=== PATIENT | female | born 1930 | race Caucasian/White ===

== ENCOUNTER 2020-06-04 14:44 | Inpatient (IN) ==
--- OUTSIDE RECORDS SUMMARY | 2020-06-04 14:47 | External Medical Summary | Continuity of Care Document ---
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 , M.D. Quantity: 90 Refills: 1 Meclizine HCl - 25 MG Oral Tablet; TAKE 1 TABLET 3 ODILON ES DAILY NEEDED. , M.D. Quantity: 100 Refills: 1 Ondansetron HCl - 4 MG Oral Tablet; TAKE 1 TABLET EVERY 4-6 HOURS NEEDED FOR NAUSEA , M.D. Refills: 0 raNITIdine HCl 75 MG TABS; TAKE 1 TABLET DAILY NEEDED. , M.D. Refills: 0 PreserVision AREDS Oral Capsule; TAKE 1 CAPSULE DAILY. , M.D . Refills: 0 Procedures History of Cholecystotomy Status: Comple braulio Immunizations Immunizations not documented Social History - Smoking Status Ex-smoker Plan of Treatment Planned Observations Planned Goals not documented Results No Known Results Results not documented
[2020-06-04] MEDS ORDERED: SODIUM CHLORIDE 0.9% 500 ML IV ONE (16:22)
--- NOTE | 2020-06-04 16:43 | XRay Report ---
XR chest 1V portable CLINICAL HISTORY: weakness COMPARISON STUDY: No previous studies for comparison. FINDINGS: The heart is normal in size. There is a moderate thoracolumbar scoliosis. There is no failu re. There is no focal pulmonary consolidation. There is minimal blunting of the lateral costophrenic angles[ IMPRESSION: 1. Scoliosis 2. Minimal blunting of the lateral costophrenic angles 3. Otherwise unremarkable AP portable chest ACT 112: Negative or not required by law. Electronically signed by: Mohsen Kaur M.D. 06/04/2020 4:41 PM
[2020-06-04 17:14] LABS: Basophils # (auto) 0.01 K/uL (0-0.2); Basophils % (auto) 0.2 %; Eosinophils # (auto) 0.06 K/uL (0-0.5); Eosinophils % (auto) 1.5 %; Hematocrit (blood only) 40.5 % (37-47); Immature Granulocytes # (auto) 0.01 K/uL (0.00-0.02); Immature Granulocytes % (auto) 0.2 %; Lymphocytes # (auto) 0.53 K/uL (1.2-3.4); Lymphocytes % (auto) 13.2 %; Mean Corpuscular Hemoglobin 30.7 pg (25-34); Mean Corpuscular Hgb Conc 32.1 g/dL (32-36); Mean Corpuscular Volume 95.7 fL (80-100); Mean Platelet Volume 9.8 fL (7.4-10.4); Monocytes # (auto) 0.51 K/uL (0.11-0.59); Monocytes % (auto) 12.7 %; Neutrophils # (auto) 2.91 K/uL (1.4-6.5); Neutrophils % (auto) 72.2 %; Platelet Count 123 K/uL (130-400); RDW Coefficient of Variation 14.1 % (11.5-14.5); RDW Standard Deviation 49.9 fL (36.4-46.3); Red Blood Count 4.23 M/uL (4.2-5.4); White Blood Count 4.03 K/uL (4.8-10.8)
--- NOTE | 2020-06-04 17:21 | Emergency Department Note ---
Impression & Plan Weakness, Hypercalcemia, Elevated troponin, Renal insufficiency ED Provider Note NAME: TOSIN SUTHERLAND AGE: 89 SEX: F ARRIVES VIA: Walk-In INFORMANT: Patient, ED PROVIDER(S): Dominic Jones MD CHIEF COMPLAINT: Weakness PLAN: Disposition: Admit MEDICAL DECISION MAKING: The patient is a pleasant 89-year-old woman who presents to the emergency department accompanied by her daughter with concern for continued generalized weakness and decreased appetite with nausea and dizziness after recent hospitalization several weeks ago [facility] for kidney stone which required stent placement subsequently discharged home but because of continued weakness from her hospitalization went to [facility] for several weeks where she requested to leave early because she wanted to go home. The patient's daughter reports that since she is been home she is not walking at her baseline and will walk with her walker from living to the kitchen but will become severely fatigued and will need assistance immediately or she will fall. She does admit that this was her state when she left the hospital as well as when she left rehab at [facility]. Prior to this they report she was admitted to [facility] for confusion and she was found to have elevated calcium. The daughter reports they wanted to come here as opposed to returning to [place] or [facility] because she felt like they were "getting the run around". She does admit that they have not contacted her PCP since she left [facility] but have an appointment in a couple of weeks. They deny fevers, cough, congestion, CP, SOB. On arrival patient is fatigued appearing but no acute distress, afebrile with stable vital signs. She has no focal neurologic deficits. She has general symmetric weakness throughout. DTRs within normal limits. There is no clonus. She appears clinically dry. EKG without overt acute ischemia. CXR negative for acute cardiopulmonary process. WBC 4K, nonspecific. H/H wnl. Platelets 123K without recent for comparison. Chemistry without acidosis. Creatinine 1.49 without prior for comparison though family feel there were told she has mild renal insufficiency in the past. BUN/Cr > 20 suggestive of pre-renal component. Magnesium 1.7 with repletion ordered but declined by patient and family. Calcium is elevated at 11.2. LFTS unremarkable. Initial Troponin 0.059 without prior for comparison however unlikely ACS at this time given EKG. Lipase wnl. Covid-19, Influenza, and RSV PCR negative. CT head and Abdomen pelvis ordered however son at the bedside was decided that they did not want this done as she had extensive brain imaging in March. I did explain that this was indicated given her symptoms of weakness (while nonfocal) have continued. However, CT head was still declined. They were agreeable with CT of the abdomen, which was performed and did not demonstrate any significant acute findings. After reviewing findings and speaking at length of her ongoing weakness they did agree with plan for admission for further evaluation and management. Case was discussed with Dr. Connors, [facility] hospitalist, who will evaluate the patient for admission. Triage Nursing notes reviewed and agree them. Prior medical records reviewed Vital Signs: reviewed and remarkable for no significant abnormalities Differential diagnosis: Infection, dehydration, metabolic abnormality, hypo/hyperglycemia, electrolyte disturbance, anemia, hypoxia, cardiac sources, intracerebral event, toxicologic, neurologic, as well as other pathologies. ER treatment provided: See below. Diagnostics interpreted by me: ECG: NSR, 75 bpm, no ectopy, no overt ST elevation or depression. QTC 399, QRS 78. Cardiac Monitoring: An order for continuous cardiac monitoring was placed and demonstrated NSR, 75 bpm, no ectopy. Laboratory studies: See below Imaging studies: XR chest 1V portable CLINICAL HISTORY: weakness COMPARISON STUDY: No previous studies for comparison. FINDINGS: The heart is normal in size. There is a moderate thoracolumbar sc oliosis. There is no failure. There is no focal pulmonary consolidation. There is minimal blunting of the lateral costophrenic angles[ IMPRESSION: 1. Scoliosis 2. Minimal blunting of the lateral costophrenic angles 3. Otherwise unremarkable AP portable chest -- CT SCAN OF THE ABDOMEN AND PELVIS WITHOUT CONTRAST CLINICAL HISTORY: back pain, generalized weakness, s/p ureteral stent COMPARISON STUDY: No previous studies for comparison. TECHNIQUE: CT scan of the abdomen and pelvis was performed from the lung bases to the proximal femurs. Images are reviewed in the axial, sagittal, and coronal planes. IV contrast was not administered for this examination. A dose lowering technique was utilized adhering to the principles of ALARA. CT DOSE: 468.42 mGy.cm FINDINGS: Lower chest: There are small bilateral pleural effusions. There are bibasilar opacity statistically atelectatic. There are coronary artery calcifications. There is 16mm right breast nodule possibly representing a cyst. Liver: The unenhanced liver is normal in size, contour, and attenuation. There is no intrahepatic biliary ductal dilatation. Gallbladder: Surgically absent Spleen: Normal in size and attenuation. Pancreas: Unremarkable. Adrenal glands: There is a 17 mm left adrenal adenoma Kidneys: There is no hydronephrosis. No renal or ureteral calculi are visualized. Bowel: There are no transition zones indicate bowel obstruction. 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 Peritoneum: There is no intraperitoneal free air or abdominal ascites. Vasculature: The abdominal aorta is normal in course and caliber. Adenopathy: None. Pelvic viscera: There are small bladder calculi. Skeletal structures: There is a pronounced lumbar scoliosis. There are multilev el degenerative changes. No destructive lesions are visualized. IMPRESSION: 1. Postsurgical changes are prior colectomy with right lower quadrant ileostomy 2. No evidence of bowel obstruction. No evidence of free air 3. No renal or ureteral calculi identified 4. Multiple tiny bladder calculi 5. Small bilateral pleural effusions with dependent parenchymal opacities likely atelectatic 6. Prominent scoliosis with degenerative change. Consultation(s): Case was discussed with Dr. Connors, [facility] hospitalist, who will evaluate the patient for admission. HPI: The patient is a pleasant 89-year-old woman who presents to the emergency department accompanied by her daughter with concern for continued generalized weakness and decreased appetite with nausea and dizziness after recent hospitalization several weeks ago [facility] for kidney stone which required stent placement subsequently discharged home but because of continued weakness from her hospitalization went to [facility] for several weeks where she requested to leave early because she wanted to go home. The patient's daughter reports that since she is been home she is not walking at her baseline and will walk with her walker from living to the kitchen but will become severely fatigued and will need assistance immediately or she will fall. She does admit that this was her state when she left the hospital as well as when she left rehab at [facility]. Prior to this they report she was admitted to [facility] for confusion and she was found to have elevated calcium. The daughter reports they wanted to come here as opposed to returning to [place] or [facility] because she felt like they were "getting the run around". She does admit that they have not contacted her PCP since she left [facility] but have an appointment in a couple of weeks. They deny fevers, cough, congestion, CP, SOB. ROS: See above HPI for pertinent positives & negatives. A total of 10 systems reviewed and were otherwise negative. PAST MEDICAL HISTORY:See Below PAST SURGICAL HISTORY:See Below FAMILY HISTORY:See Below SOCIAL HISTORY:See Below HOME MEDICATIONS:See Below ALLERGIES:See Below VITALS:See Below PHYSICAL EXAMINATION: GENERAL: Awake, alert, fatigued-appearing, in no distress HENT: Normocephalic, atraumatic. Oropharynx with dry mucous membranes and otherwise unremarkable. EYES: Normal conjunctiva. Sclera non-icteric. NECK: Supple. No nuchal rigidity. FROM. No JVD. RESPIRATORY: Clear to auscultation. CARDIAC: Regular rate, normal rhythm. Extremities warm and well perfused. Pulses equal. ABDOMEN: Soft, non-distended. No tenderness to palpation. No rebound or guarding. No masses. RECTAL: Deferred. MUSCULOSKELETAL: Chest examination reveals no tenderness. The back is symmetrical on inspection without obvious abnormality. There is no CVA tenderness to palpation. No joint edema. LOWER EXTREMITIES: Calves are equal size bilaterally and non-tender. No edema. No discoloration. NEURO: No focal sensory or motor deficits noted. Generalized weakness with 4/5 strength and SILT x 4 ext. Intact finger to nose. SKIN: No rash or jaundice noted. Dominic Jones MD Past Med/Surg History Medical History Hypercalcemia Hyperlipidemia Hypertension Nephrolithiasis Social History Smoking Status: Former smoker Hx Alcohol Use: No Hx Substance Use: No Preferred Language: Nepalese Beliefs That Will Affect Care: None Current Living Situation: Family Current Living Situation Comment: lives in house with 12 steps at entrance, son lives with patient Other Information That Helps Us Care for You: No Feels Safe at Home: Yes Safety Concerns: Feels Safe At This Time Assistive Devices: Glasses and Walker Allergies Allergies Allergy/AdvReac Type Severity Reaction Status Date / Time ketorolac [From Toradol] AdvReac Severe Confusion Verified 06/04/20 19:32 Home Meds Home Medications Medication Instructions Recorded Confirmed aspirin 81 mg PO DAILY 06/04/20 06/04/20 atenolol 12.5 mg PO QAM 06/04/20 06/04/20 atorvastatin 20 mg PO HS 06/04/20 06/04/20 lorazepam 0.5 mg PO BID PRN 06/04/20 06/04/20 tamsulosin 0.4 mg PO BID 06/04/20 06/04/20 Results & Data (ED) Vital Signs Vital Signs - 24 hr 06/04/20 14:49 06/04/20 16:07 06/04/20 16:08 Temperature 36.3 C L Temperature Source Temporal Artery Scan Pulse Rate 88 87 Pulse Rate from SpO2 Sensor 86 Pulse Rhythm Regular Pulse Strength Normal Respiratory Rate 18 23 Respiratory Effort / Characteristics Non-Labored Spontaneous Respiratory Depth Normal Respiratory Pattern Regular Blood Pressure 94/64 L 115/64 Blood Pressure Mean 74 81 Blood Pressure Position Sitting Pulse Oximetry 98 97 96 Oxygen Delivery Method Room Air Room Air Sepsis Recent Fever Within 48 Hours No Sepsis New/Unexplained Change in Mental Status N/A Sepsis Action Taken by Nursing No Action Required 06/04/20 16:09 06/04/20 16:10 06/04/20 16:20 Temperature Temperature Source Pulse Rate 86 85 77 Pulse Rate from SpO2 Sensor 86 85 85 Pulse Rhythm Pulse Strength Respiratory Rate 23 19 27 H Respiratory Effort / Characteristics Respiratory Depth Respiratory Pattern Blood Pressure Blood Pressure Mean Blood Pressure Position Pulse Oximetry 99 98 96 Oxygen Delivery Method Sepsis Recent Fever Within 48 Hours Sepsis New/Unexplained Change in Mental Status Sepsis Action Taken by Nursing 06/04/20 16:22 06/04/20 16:30 06/04/20 16:40 Temperature Temperature Source Pulse Rate 83 81 Pulse Rate from SpO2 Sensor 77 84 Pulse Rhythm Pulse Strength Respiratory Rate 23 16 Respiratory Effort / Characteristics Respiratory Depth Respiratory Pattern Blood Pressure Blood Pressure Mean Blood Pressure Position Pulse Oximetry 96 97 99 Oxygen Delivery Method Room Air Sepsis Recent Fever Within 48 Hours Sepsis New/Unexplained Change in Mental Status Sepsis Action Taken by Nursing 06/04/20 16:50 06/04/20 17:00 06/04/20 17:01 Temperature Temperature Source Pulse Rate 76 78 85 Pulse Rate from SpO2 Sensor 76 78 77 Pulse Rhythm Pulse Strength Respiratory Rate 20 24 20 Respiratory Effort / Characteristics Respiratory Depth Respiratory Pattern Blood Pressure 114/62 Blood Pressure Mean 79 Blood Pressure Position Pulse Oximetry 99 97 97 Oxygen Delivery Method Sepsis Recent Fever Within 48 Hours Sepsis New/Unexplained Change in Mental Status Sepsis Action Taken by Nursing 06/04/20 17:10 06/04/20 17:20 06/04/20 17:30 Temperature Temperature Source Pulse Rate 78 77 Pulse Rate from SpO2 Sensor Pulse Rhythm Pulse Strength Respiratory Rate 18 25 H 23 Respiratory Effort / Characteristics Respiratory Depth Respiratory Pattern Blood Pressure Blood Pressure Mean Blood Pressure Position Pulse Oximetry Oxygen Delivery Method Sepsis Recent Fever Within 48 Hours Sepsis New/Unexplained Change in Mental Status Sepsis Action Taken by Nursing 06/04/20 17:40 06/04/20 17:50 06/04/20 18:00 Temperature Temperature Source Pulse Rate 74 76 70 Pulse Rate from SpO2 Sensor Pulse Rhythm Pulse Strength Respiratory Rate 21 22 22 Respiratory Effort / Characteristics Respiratory Depth Respiratory Pattern Blood Pressure 113/61 Blood Pressure Mean 78 Blood Pressure Position Pulse Oximetry 96 Oxygen Delivery Method Room Air Sepsis Recent Fever Within 48 Hours Sepsis New/Unexplained Change in Mental Status Sepsis Action Taken by Nursing 06/04/20 18:01 06/04/20 18:10 06/04/20 18:20 Temperature Temperature Source Pulse Rate 73 72 72 Pulse Rate from SpO2 Sensor Pulse Rhythm Pulse Strength Respiratory Rate 19 19 24 Respiratory Effort / Characteristics Respiratory Depth Respiratory Pattern Blood Pressure Blood Pressure Mean Blood Pressure Position Pulse Oximetry Oxygen Delivery Method Sepsis Recent Fever Within 48 Hours Sepsis New/Unexplained Change in Mental Status Sepsis Action Taken by Nursing 06/04/20 18:30 06/04/20 18:40 06/04/20 18:50 Temperature Temperature Source Pulse Rate 74 73 72 Pulse Rate from SpO2 Sensor Pulse Rhythm Pulse Strength Respiratory Rate 23 24 22 Respiratory Effort / Characteristics Respiratory Depth Respiratory Pattern Blood Pressure Blood Pressure Mean Blood Pressure Position Pulse Oximetry Oxygen Delivery Method Sepsis Recent Fever Within 48 Hours Sepsis New/Unexplained Change in Mental Status Sepsis Action Taken by Nursing 06/04/20 19:00 06/04/20 19:10 06/04/20 19:20 Temperature Temperature Source Pulse Rate 74 75 75 Pulse Rate from SpO2 Sensor Pulse Rhythm Pulse Strength Respiratory Rate 21 23 24 Respiratory Effort / Characteristics Respiratory Depth Respiratory Pattern Blood Pressure 110/66 Blood Pressure Mean 80 Blood Pressure Position Pulse Oximetry Oxygen Delivery Method Sepsis Recent Fever Within 48 Hours Sepsis New/Unexplained Change in Mental Status Sepsis Action Taken by Nursing 06/04/20 19:30 06/04/20 19:40 06/04/20 19:50 Temperature Temperature Source Pulse Rate 75 76 79 Pulse Rate from SpO2 Sensor 78 Pulse Rhythm Pulse Strength Respiratory Rate 20 16 21 Respiratory Effort / Characteristics Respiratory Depth Respiratory Pattern Blood Pressure Blood Pressure Mean Blood Pressure Position Pulse Oximetry 96 Oxygen Delivery Method Sepsis Recent Fever Within 48 Hours Sepsis New/Unexplained Change in Mental Status Sepsis Action Taken by Nursing 06/04/20 20:00 06/04/20 20:01 06/04/20 20:23 Temperature Temperature Source Pulse Rate 75 79 82 Pulse Rate from SpO2 Sensor 75 77 82 Pulse Rhythm Pulse Strength Respiratory Rate 22 19 22 Respiratory Effort / Characteristics Respiratory Depth Respiratory Pattern Blood Pressure 111/67 128/67 Blood Pressure Mean 81 87 Blood Pressure Position Pulse Oximetry 97 96 97 Oxygen Delivery Method Sepsis Recent Fever Within 48 Hours Sepsis New/Unexplained Change in Mental Status Sepsis Action Taken by Nursing 06/04/20 20:30 06/04/20 20:40 06/04/20 20:50 Temperature Temperature Source Pulse Rate 77 76 75 Pulse Rate from SpO2 Sensor 79 76 75 Pulse Rhythm Pulse Strength Respiratory Rate 22 20 23 Respiratory Effort / Characteristics Respiratory Depth Respiratory Pattern Blood Pressure Blood Pressure Mean Blood Pressure Position Pulse Oximetry 96 97 97 Oxygen Delivery Method Sepsis Recent Fever Within 48 Hours Sepsis New/Unexplained Change in Mental Status Sepsis Action Taken by Nursing 06/04/20 21:00 06/04/20 21:01 06/04/20 21:10 Temperature Temperature Source Pulse Rate 79 78 79 Pulse Rate from SpO2 Sensor 80 78 79 Pulse Rhythm Pulse Strength Respiratory Rate 24 23 23 Respiratory Effort / Characteristics Respiratory Depth Respiratory Pattern Blood Pressure 122/67 Blood Pressure Mean 85 Blood Pressure Position Pulse Oximetry 97 97 97 Oxygen Delivery Method Sepsis Recent Fever Within 48 Hours Sepsis New/Unexplained Change in Mental Status Sepsis Action Taken by Nursing 06/04/20 21:20 06/04/20 21:30 06/04/20 21:40 Temperature Temperature Source Pulse Rate 76 75 75 Pulse Rate from SpO2 Sensor 76 76 74 Pulse Rhythm Pulse Strength Respiratory Rate 21 15 20 Respiratory Effort / Characteristics Respiratory Depth Respiratory Pattern Blood Pressure Blood Pressure Mean Blood Pressure Position Pulse Oximetry 97 97 98 Oxygen Delivery Method Sepsis Recent Fever Within 48 Hours Sepsis New/Unexplained Change in Mental Status Sepsis Action Taken by Nursing 06/04/20 21:50 06/04/20 22:00 06/04/20 22:01 Temperature Temperature Source Pulse Rate 74 77 78 Pulse Rate from SpO2 Sensor 74 76 77 Pulse Rhythm Pulse Strength Respiratory Rate 21 20 22 Respiratory Effort / Characteristics Respiratory Depth Respiratory Pattern Blood Pressure 131/73 Blood Pressure Mean 92 Blood Pressure Position Pulse Oximetry 97 97 97 Oxygen Delivery Method Sepsis Recent Fever Within 48 Hours Sepsis New/Unexplained Change in Mental Status Sepsis Action Taken by Nursing 06/04/20 22:10 06/04/20 22:20 06/04/20 22:30 Temperature Temperature Source Pulse Rate 80 79 76 Pulse Rate from SpO2 Sensor 80 78 77 Pulse Rhythm Pulse Strength Respiratory Rate 20 25 H 23 Respiratory Effort / Characteristics Respiratory Depth Respiratory Pattern Blood Pressure Blood Pressure Mean Blood Pressure Position Pulse Oximetry 97 99 97 Oxygen Delivery Method Sepsis Recent Fever Within 48 Hours Sepsis New/Unexplained Change in Mental Status Sepsis Action Taken by Nursing 06/04/20 22:40 06/04/20 22:50 Temperature Temperature Source Pulse Rate 76 92 H Pulse Rate from SpO2 Sensor 75 82 Pulse Rhythm Pulse Strength Respiratory Rate 20 20 Respiratory Effort / Characteristics Respiratory Depth Respiratory Pattern Blood Pressure Blood Pressure Mean Blood Pressure Position Pulse Oximetry 96 98 Oxygen Delivery Method Sepsis Recent Fever Within 48 Hours Sepsis New/Unexplained Change in Mental Status Sepsis Action Taken by Nursing Laboratory Data Attestation: I reviewed the patient's lab results. Result diagrams: 06/04/20 17:05 06/04/20 17:05 Lab Results 06/04/20 06/04/20 06/04/20 Range/Units 16:47 16:47 17:05 WBC 4.03 L (4.8-10.8) K/uL RBC 4.23 (4.2-5.4) M/uL Hgb 13.0 (12.0-16.0) g/dL POC Hgb (12.0-16.0) g/dl Hct 40.5 (37-47) % POC Hct (37-47) % MCV 95.7 (80-100) fL MCH 30.7 (25-34) pg MCHC 32.1 (32-36) g/dL RDW Std Deviation 49.9 H (36.4-46.3) fL RDW Coeff of Makeda 14.1 (11.5-14.5) % Plt Count 123 L (130-400) K/uL MPV 9.8 (7.4-10.4) fL Immature Gran % (Auto) 0.2 % Neut % (Auto) 72.2 % Lymph % (Auto) 13.2 % [place] % (Auto) 12.7 % Eos % (Auto) 1.5 % Baso % (Auto) 0.2 % Neut # (Auto) 2.91 (1.4-6.5) K/uL Lymph # (Auto) 0.53 L (1.2-3.4) K/uL [place] # (Auto) 0.51 (0.11-0.59) K/uL Eos # (Auto) 0.06 (0-0.5) K/uL Baso # (Auto) 0.01 (0-0.2) K/uL Immature Gran # (Auto) 0.01 (0.00-0.02) K/uL Echinocytes 1+ POC Sodium (135-144) mmol/L Sodium (136-145) mmol/L POC Potassium (3.3-5.0) mmol/L Potassium (3.5-5.1) mmol/L POC Chloride (101-112) mmol/L Chloride (98-107) mmol/L Carbon Dioxide (21-32) mmol/L POC Total CO2 (24-31) mmol/L Anion Gap (3-11) POC Anion Gap (16-25) mmol/L POC BUN (7-18) mg/dl BUN (7-18) mg/dl Creatinine (0.6-1.2) mg/dl POC Creatinine (0.6-1.3) mg/dl Est Cr Clr Drug Dosing Est GFR ( Amer) Est GFR (Non-Af Amer) BUN/Creatinine Ratio (10-20) Glucose (70-99) mg/dl POC Glucose (other) (70-99) mg/dl Calcium (8.5-10.1) mg/dl POC Ioniz Calcium Tori (1.12-1.32) mmol/l Phosphorus (2.5-4.9) mg/dl Magnesium (1.8-2.4) mg/dl Total Bilirubin (0.2-1) mg/dl Direct Bilirubin (0-0.2) mg/dl AST (15-37) U/L ALT (12-78) U/L Alkaline Phosphatase (45-117) U/L Total Creatine Kinase (26-192) U/L Troponin I (0-0.045) ng/ml Total Protein (6.4-8.2) gm/dl Albumin (3.4-5.0) gm/dl Globulin (2.5-4.0) gm/dl Albumin/Globulin Ratio (0.9-2) Lipase (73-393) U/L Specimen Hemolysis COVID-[address] Cov[address]Rsv at [facility] SARS-CoV-2 (PCR) NEGATIVE (Negative) Influenza Type A (PCR) Negative (Neg) Influenza Type B (PCR) Negative (Neg) RSV (RT-PCR) Negative (Neg) 06/04/20 06/04/20 Range/Units 17:05 17:43 WBC (4.8-10.8) K/uL RBC (4.2-5.4) M/uL Hgb (12.0-16.0) g/dL POC Hgb 14.3 (12.0-16.0) g/dl Hct (37-47) % POC Hct 42 (37-47) % MCV (80-100) fL MCH (25-34) pg MCHC (32-36) g/dL RDW Std Deviation (36.4-46.3) fL RDW Coeff of Makeda (11.5-14.5) % Plt Count (130-400) K/uL MPV (7.4-10.4) fL Immature Gran % (Auto) % Neut % (Auto) % Lymph % (Auto) % [place] % (Auto) % Eos % (Auto) % Baso % (Auto) % Neut # (Auto) (1.4-6.5) K/uL Lymph # (Auto) (1.2-3.4) K/uL [place] # (Auto) (0.11-0.59) K/uL Eos # (Auto) (0-0.5) K/uL Baso # (Auto) (0-0.2) K/uL Immature Gran # (Auto) (0.00-0.02) K/uL Echinocytes POC Sodium 138 (135-144) mmol/L Sodium 139 (136-145) mmol/L POC Potassium 4.6 (3.3-5.0) mmol/L Potassium 4.2 (3.5-5.1) mmol/L POC Chloride 109 (101-112) mmol/L Chloride 111 H (98-107) mmol/L Carbon Dioxide 23 (21-32) mmol/L POC Total CO2 25 (24-31) mmol/L Anion Gap 5.0 (3-11) POC Anion Gap 9.0 L (16-25) mmol/L POC BUN 42 H (7-18) mg/dl BUN 34 H (7-18) mg/dl Creatinine 1.49 H (0.6-1.2) mg/dl POC Creatinine 1.5 H (0.6-1.3) mg/dl Est Cr Clr Drug Dosing Not Reportable Est GFR ( Amer) 36.0 Est GFR (Non-Af Amer) 31.0 BUN/Creatinine Ratio 22.8 H (10-20) Glucose 107 H (70-99) mg/dl POC Glucose (other) 96 (70-99) mg/dl Calcium 11.2 H (8.5-10.1) mg/dl POC Ioniz Calcium Tori 1.46 H (1.12-1.32) mmol/l Phosphorus 2.3 L (2.5-4.9) mg/dl Magnesium 1.7 L (1.8-2.4) mg/dl Total Bilirubin 0.7 (0.2-1) mg/dl Direct Bilirubin (0-0.2) mg/dl AST 36 (15-37) U/L ALT 22 (12-78) U/L Alkaline Phosphatase 121 H (45-117) U/L Total Creatine Kinase 50 (26-192) U/L Troponin I 0.059 H* (0-0.045) ng/ml Total Protein 5.9 L (6.4-8.2) gm/dl Albumin 2.7 L (3.4-5.0) gm/dl Globulin 3.2 (2.5-4.0) gm/dl Albumin/Globulin Ratio 0.8 L (0.9-2) Lipase 200 (73-393) U/L Specimen Hemolysis COVID-19 Eval Order SARS-CoV-2 (PCR) (Negative) Influenza Type A (PCR) (Neg) Influenza Type B (PCR) (Neg) RSV (RT-PCR) (Neg) Administered Medications Discontinued Medications Sodium Chloride (Nss) 500 mls @ 999 mls/hr IV .Q31M ONE Stop: 06/04/20 16:52 Last Infusion: 06/04/20 19:47 Dose: 0 mls/hr Documented by: [id number] Admin: 06/04/20 17:45 Dose: 999 mls/hr Documented by: [id number] Sodium Chloride (Nss) 500 mls @ 999 mls/hr IV .Q31M ONE Stop: 06/04/20 20:20 Last Infusion: 06/04/20 22:11 Dose: 0 mls/hr Documented by: [id number] Admin: 06/04/20 21:34 Dose: 999 mls/hr Documented by: [id number] Magnesium Sulfate/Dextrose (Magnesium Sulfate / D5w) 1 gm in 100 mls @ 100 mls/hr IV NOW STA Stop: 06/04/20 20:50 Last Admin: 06/04/20 21:30 Dose: Not Given Documented by: [id number] Discharge Plan Visit Data Chief Complaint: Leg Weakness, Bilateral Stated Complaint: WEAKNESS ALL OVER LEGS ARE THE WORST ED Provider: Dominic Jones Discharge Problem: Weakness, Hypercalcemia, Elevated troponin, Renal insufficiency Patient Disposition: Admitted As Inpatient Discharge Instructions Interventions: ED Discharge Assessment Last Done: 06/04/20 23:38
[2020-06-04 17:33] LABS: Echinocytes 1+
[2020-06-04 17:43] LABS: Alanine Aminotransferase 22 U/L (12-78); Albumin Globulin Ratio 0.8 (0.9-2); Albumin Level 2.7 gm/dl (3.4-5.0); Alkaline Phosphatase 121 U/L (45-117); Aspartate Aminotransferase 36 U/L (15-37); BUN Creatinine Ratio 22.8 (10-20); Bilirubin,Total 0.7 mg/dl (0.2-1); Blood Urea Nitrogen 34 mg/dl (7-18); Calcium 11.2 mg/dl (8.5-10.1); Carbon Dioxide 23 mmol/L (21-32); Chloride 111 mmol/L (98-107); Creatine Kinase 50 U/L (26-192); Globulin 3.2 gm/dl (2.5-4.0); Glucose 107 mg/dl (70-99); Lipase 200 U/L (73-393); Magnesium 1.7 mg/dl (1.8-2.4); Phosphorus 2.3 mg/dl (2.5-4.9); Potassium 4.2 mmol/L (3.5-5.1); Sodium 139 mmol/L (136-145); Total Protein 5.9 gm/dl (6.4-8.2); Troponin I 0.059 ng/ml (0-0.045)
[2020-06-04 17:56] LABS: iSTAT Creatinine 1.5 mg/dl (0.6-1.3); iSTAT Hemoglobin 14.3 g/dl (12.0-16.0); iSTAT Ionized Calcium 1.46 mmol/l (1.12-1.32); iSTAT Potassium 4.6 mmol/L (3.3-5.0)
[2020-06-04 18:14] LABS: Influenza A virus by PCR Negative (Neg); Influenza B virus by PCR Negative (Neg); RSV by PCR Negative (Neg); SARS CoV2 RNA(COVID-19) InHosp NEGATIVE (Negative)
[2020-06-04] MEDS ORDERED: MAGNESIUM SULFATE / D5W 1 GM/100 ML BAG IV STA (19:51)
--- NOTE | 2020-06-04 20:30 | CT Scan Report ---
CT SCAN OF THE ABDOMEN AND PELVIS WITHOUT CONTRAST CLINICAL HISTORY: back pain, generalized weakness, s/p ureteral stent COMPARISON STUDY: No previous studies for comparison. TECHNIQUE: CT scan of the abdomen and pelvis was performed from the lung bases to the proximal femurs . Images are reviewed in the axial, sagittal, and coronal planes. IV contrast was not administered fo r this examination. A dose lowering technique was utilized adhering to the principles of ALARA. CT DOSE: 468.42 mGy.cm FINDINGS: Lower chest: There are small bilateral pleural effusions. There are bibasilar opacity statistically a telectatic. There are coronary artery calcifications. There is 16mm right breast nodule possibly repr esenting a cyst. Liver: The unenhanced liver is normal in size, contour, and attenuation. There is no intrahepatic marco a iary ductal dilatation. Gallbladder: Surgically absent Spleen: Normal in size and attenuation. Pancreas: Unremarkable. Adrenal glands: There is a 17 mm left adrenal adenoma Kidneys: There is no hydronephrosis. No renal or ureteral calculi are visualized. Bowel: There are no transition zones indicate bowel obstruction. 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 Peritoneum: There is no intraperitoneal free air or abdominal ascites. Vasculature: The abdominal aorta is normal in course and caliber. Adenopathy: None. Pelvic viscera: There are small bladder calculi. Skeletal structures: There is a pronounced lumbar scoliosis. There are multilevel degenerative change s. No destructive lesions are visualized. IMPRESSION: 1. Postsurgical changes are prior colectomy with right lower quadrant ileostomy 2. No evidence of bowel obstruction. No evidence of free air 3. No renal or ureteral calculi identified 4. Multiple tiny bladder calculi 5. Small bilateral pleural effusions with dependent parenchymal opacities likely atelectatic 6. Prominent scoliosis with degenerative change. ACT 112: Negative or not required by law. Electronically signed by: Mohsen Kaur M.D. 06/04/2020 8:29 PM
[2020-06-04] MEDS: SODIUM CHLORIDE 0.9% 500 ML IV ONE ×2 (21:31→21:34)
--- NOTE | 2020-06-04 22:57 | History & Physical Report ---
Date of Service June 04, 2020 Assessment & Plan (1) Hypercalcemia: Naheed Lewis is a 89y/o F presenting to the hospital for generalized weakness, decreased appetite, and decreased interest in normal daily activities over the last several weeks. Weakness: -patient with subjective weakness and reported balance issues over the last several weeks -recently requested discharge from [facility] following several weeks of rehabilitation -concerns with anhedonia contributions to overall energy easy fatigue-ability -PT/OT consulted Elevated troponin: -troponin elevated on admission (0.059) -no significant EKG changes -will continue to monitor Hypercalcemia: -incidentally noticed in March due to confusion episode -no currently having any continued signs/symptoms of hypercalcemia -Ca on admission of 11.2 -continue to monitor for signs/symptoms of hypercalcemia Anhedonia/depression: -patient expressed frustration with loss of independence over the last several years, and especially over the last several months with inability to see family on a regular basis and feeling more isolated Diet: Heart healthy CODE STATUS: Conditional code (2) Elevated troponin: (3) Weakness: (4) Anhedonia: History of Present Illness Primary Care Provider: Edward Abernathy Naheed Lewis is a 89y/o F presenting to the hospital for generalized weakness, decreased appetite, and decreased interest in normal daily activities over the last several weeks. Over the last several months, patient has become increasingly frustrated with the pandemic and not being able to routinely see her family like she used too. Then in March, patient had an episode of confusion while on the phone with her family and they became concerned that she had a stroke and took her to the hospital in [place], there they discovered that she had a little bit of a higher calcium level in her blood and gave her more fluids. Following several days there, she was discharged to [facility] to work on improving her strength and for a time she was happy with doing this as her Grand-daughter works there and she was able to see her intermittently, but then over time her still being away from her family caused her to want to leave, and so she requested to leave even though she admits that she "had improved but wasn't myself", feels like the time away from her family which typically gives her such yadiel in the day really took a lot out of her, and she dislikes the fact that she is more reliant on her family than she ever was before this last year. Endorses changes to her sleep pattern over the last several weeks, decreased interest in normal activities, decreased appetite, feelings of guilt with being so reliant on her family. Denies SI/HI. Allergies Allergy/AdvReac Type Severity Reaction Status Date / Time ketorolac [From Toradol] AdvReac Severe Confusion Verified 06/04/20 19:32 Home Medications Medication Instructions Recorded Confirmed Type aspirin 81 mg PO DAILY 06/04/20 06/04/20 History atenolol 12.5 mg PO QAM 06/04/20 06/04/20 History atorvastatin 20 mg PO HS 06/04/20 06/04/20 History lorazepam 0.5 mg PO BID PRN 06/04/20 06/04/20 History tamsulosin 0.4 mg PO BID 06/04/20 06/04/20 History Past Med/Surg History Medical History (Updated 06/05/20 @ 13:03 by Rebeka Le MD) Hypercalcemia Hyperlipidemia Hypertension Nephrolithiasis Thyroid nodule Social History Smoking Status: Former smoker Hx Alcohol Use: No Hx Substance Use: No Preferred Language: Polish Communication Ability: Effective Beliefs That Will Affect Care: None marital status: / Current Living Situation: Family Current Living Situation Comment: lives in house with 12 steps at entrance, son lives with patient How many Children do You have: 6 Other Information That Helps Us Care for You: No Feels Safe at Home: Yes Safety Concerns: Feels Safe At This Time Assistive Devices: Glasses and Walker Review of Systems Review of Systems: All systems reviewed & are unremarkable except as noted in HPI & below Physical Exam Constitutional: WD/WN, vitals as above Eyes: PERRL, conjunctivae normal, anicteric sclerae ENMT: external ear and nose normal, oropharynx normal Respiratory: normal respiratory effort, lungs clear to auscultation Cardiovascular: Rate/Rhythm: regular rate and regular rhythm Heart Sounds: no gallop, no murmur and no cardiac rub Vessels: normal peripheral pulses; no JVD Extremities: + pedal edema (2+ b/l to knees) Gastrointestinal (Abdomen): normal bowel sounds, soft, nontender, no hepatosplenomegaly Musculoskeletal: no cyanosis or clubbing, extremities motor strength 5/5 Neurologic: PERRL, EOMI, accommodation nl, no face palsy, no dysarthria deep tendon reflexes 2+ bilaterally and moves all extremities Psychiatric: Orientation: alert and oriented x 3 Eye Contact: good eye contact Affect: + depressed affect Mood: + depressed mood Results & Data Results & Data ([facility]) Vital Signs (Past 12 Hours) Vital Signs Temp Pulse Resp BP Pulse Ox 06/04/20 22:50 92 H 20 98 06/04/20 22:40 76 20 96 06/04/20 22:30 76 23 97 06/04/20 22:20 79 25 H 99 06/04/20 22:10 80 20 97 06/04/20 22:01 78 22 97 06/04/20 22:00 77 20 131/73 97 06/04/20 21:50 74 21 97 06/04/20 21:40 75 20 98 06/04/20 21:30 75 15 97 06/04/20 21:20 76 21 97 06/04/20 21:10 79 23 97 06/04/20 21:01 78 23 97 06/04/20 21:00 79 24 122/67 97 06/04/20 20:50 75 23 97 06/04/20 20:40 76 20 97 06/04/20 20:30 77 22 96 06/04/20 20:23 82 22 128/67 97 06/04/20 20:01 79 19 96 06/04/20 20:00 75 22 111/67 97 06/04/20 19:50 79 21 96 06/04/20 19:40 76 16 06/04/20 19:30 75 20 06/04/20 19:20 75 24 06/04/20 19:10 75 23 06/04/20 19:00 74 21 110/66 06/04/20 18:50 72 22 06/04/20 18:40 73 24 06/04/20 18:30 74 23 06/04/20 18:20 72 24 06/04/20 18:10 72 19 06/04/20 18:01 73 19 06/04/20 18:00 70 22 113/61 96 06/04/20 17:50 76 22 06/04/20 17:40 74 21 06/04/20 17:30 23 06/04/20 17:20 77 25 H 06/04/20 17:10 78 18 06/04/20 17:01 85 20 97 06/04/20 17:00 78 24 114/62 97 06/04/20 16:50 76 20 99 06/04/20 16:40 81 16 99 06/04/20 16:30 83 23 97 06/04/20 16:22 96 06/04/20 16:20 77 27 H 96 06/04/20 16:10 85 19 98 06/04/20 16:09 86 23 99 06/04/20 16:08 96 06/04/20 16:07 87 23 115/64 97 06/04/20 14:49 36.3 C L 88 18 94/64 L 98 Laboratory Results 06/05/20 06/04/20 06/04/20 Range/Units 00:26 17:43 17:05 WBC (4.8-10.8) K/uL RBC (4.2-5.4) M/uL Hgb (12.0-16.0) g/dL POC Hgb 14.3 (12.0-16.0) g/dl Hct (37-47) % POC Hct 42 (37-47) % MCV (80-100) fL MCH (25-34) pg MCHC (32-36) g/dL RDW Std Deviation (36.4-46.3) fL RDW Coeff of Makeda (11.5-14.5) % Plt Count (130-400) K/uL MPV (7.4-10.4) fL Immature Gran % (Auto) % Neut % (Auto) % Lymph % (Auto) % [place] % (Auto) % Eos % (Auto) % Baso % (Auto) % Neut # (Auto) (1.4-6.5) K/uL Lymph # (Auto) (1.2-3.4) K/uL [place] # (Auto) (0.11-0.59) K/uL Eos # (Auto) (0-0.5) K/uL Baso # (Auto) (0-0.2) K/uL Immature Gran # (Auto) (0.00-0.02) K/uL Echinocytes POC Sodium 138 (135-144) mmol/L Sodium 139 (136-145) mmol/L POC Potassium 4.6 (3.3-5.0) mmol/L Potassium 4.2 (3.5-5.1) mmol/L POC Chloride 109 (101-112) mmol/L Chloride 111 H (98-107) mmol/L Carbon Dioxide 23 (21-32) mmol/L POC Total CO2 25 (24-31) mmol/L Anion Gap 5.0 (3-11) POC Anion Gap 9.0 L (16-25) mmol/L POC BUN 42 H (7-18) mg/dl BUN 34 H (7-18) mg/dl Creatinine 1.49 H (0.6-1.2) mg/dl POC Creatinine 1.5 H (0.6-1.3) mg/dl Est Cr Clr Drug Dosing Not Reportable Est GFR ( Amer) 36.0 Est GFR (Non-Af Amer) 31.0 BUN/Creatinine Ratio 22.8 H (10-20) Glucose 107 H (70-99) mg/dl POC Glucose (other) 96 (70-99) mg/dl Calcium 11.2 H (8.5-10.1) mg/dl POC Ioniz Calcium Tori 1.46 H (1.12-1.32) mmol/l Phosphorus 2.3 L (2.5-4.9) mg/dl Magnesium 1.7 L (1.8-2.4) mg/dl Total Bilirubin 0.7 (0.2-1) mg/dl Direct Bilirubin (0-0.2) mg/dl AST 36 (15-37) U/L ALT 22 (12-78) U/L Alkaline Phosphatase 121 H (45-117) U/L Total Creatine Kinase 50 (26-192) U/L Troponin I 0.052 H* 0.059 H* (0-0.045) ng/ml Total Protein 5.9 L (6.4-8.2) gm/dl Albumin 2.7 L (3.4-5.0) gm/dl Globulin 3.2 (2.5-4.0) gm/dl Albumin/Globulin Ratio 0.8 L (0.9-2) Lipase 200 (73-393) U/L Specimen Hemolysis COVID-19 Eval Order SARS-CoV-2 (PCR) (Negative) Influenza Type A (PCR) (Neg) Influenza Type B (PCR) (Neg) RSV (RT-PCR) (Neg) 06/04/20 06/04/20 06/04/20 Range/Units 17:05 16:47 16:47 WBC 4.03 L (4.8-10.8) K/uL RBC 4.23 (4.2-5.4) M/uL Hgb 13.0 (12.0-16.0) g/dL POC Hgb (12.0-16.0) g/dl Hct 40.5 (37-47) % POC Hct (37-47) % MCV 95.7 (80-100) fL MCH 30.7 (25-34) pg MCHC 32.1 (32-36) g/dL RDW Std Deviation 49.9 H (36.4-46.3) fL RDW Coeff of Makeda 14.1 (11.5-14.5) % Plt Count 123 L (130-400) K/uL MPV 9.8 (7.4-10.4) fL Immature Gran % (Auto) 0.2 % Neut % (Auto) 72.2 % Lymph % (Auto) 13.2 % [place] % (Auto) 12.7 % Eos % (Auto) 1.5 % Baso % (Auto) 0.2 % Neut # (Auto) 2.91 (1.4-6.5) K/uL Lymph # (Auto) 0.53 L (1.2-3.4) K/uL [place] # (Auto) 0.51 (0.11-0.59) K/uL Eos # (Auto) 0.06 (0-0.5) K/uL Baso # (Auto) 0.01 (0-0.2) K/uL Immature Gran # (Auto) 0.01 (0.00-0.02) K/uL Echinocytes 1+ POC Sodium (135-144) mmol/L Sodium (136-145) mmol/L POC Potassium (3.3-5.0) mmol/L Potassium (3.5-5.1) mmol/L POC Chloride (101-112) mmol/L Chloride (98-107) mmol/L Carbon Dioxide (21-32) mmol/L POC Total CO2 (24-31) mmol/L Anion Gap (3-11) POC Anion Gap (16-25) mmol/L POC BUN (7-18) mg/dl BUN (7-18) mg/dl Creatinine (0.6-1.2) mg/dl POC Creatinine (0.6-1.3) mg/dl Est Cr Clr Drug Dosing Est GFR ( Amer) Est GFR (Non-Af Amer) BUN/Creatinine Ratio (10-20) Glucose (70-99) mg/dl POC Glucose (other) (70-99) mg/dl Calcium (8.5-10.1) mg/dl POC Ioniz Calcium Tori (1.12-1.32) mmol/l Phosphorus (2.5-4.9) mg/dl Magnesium (1.8-2.4) mg/dl Total Bilirubin (0.2-1) mg/dl Direct Bilirubin (0-0.2) mg/dl AST (15-37) U/L ALT (12-78) U/L Alkaline Phosphatase (45-117) U/L Total Creatine Kinase (26-192) U/L Troponin I (0-0.045) ng/ml Total Protein (6.4-8.2) gm/dl Albumin (3.4-5.0) gm/dl Globulin (2.5-4.0) gm/dl Albumin/Globulin Ratio (0.9-2) Lipase (73-393) U/L Specimen Hemolysis COVID-19 Eval Order CovFluRsv at [facility] SARS-CoV-2 (PCR) NEGATIVE (Negative) Influenza Type A (PCR) Negative (Neg) Influenza Type B (PCR) Negative (Neg) RSV (RT-PCR) Negative (Neg) Medications Administered Current Inpatient Medications Acetaminophen (Acetaminophen 325 Mg Tab) 650 mg PO Q4H PRN PRN Reason: pain/fever Stop: 07/05/20 00:04 Al Hydrox/Mg Hydrox/Simethicone (Aluminum/Magnesium Susp 30 Ml Udc) 30 ml PO Q6H PRN PRN Reason: Dyspepsia Stop: 07/05/20 00:04 Aspirin (Aspirin 81 Mg Ectab) 81 mg PO DAILY NASH Stop: 07/05/20 08:59 Atenolol (Atenolol 25 Mg Tablet) 12.5 mg PO QAM NASH Stop: 07/05/20 08:59 Atorvastatin Calcium (Atorvastatin 20 Mg Tab) 20 mg PO HS NASH Stop: 07/05/20 20:59 Lorazepam (Lorazepam 0.5 Mg Tab) 0.5 mg PO BID PRN PRN Reason: Anxiety Stop: 07/05/20 00:04 Magnesium Hydroxide (Magnesium Hydroxide Susp 30 Ml Udc) 30 ml PO Q6H PRN PRN Reason: Constipation Stop: 07/05/20 00:04 Morphine Sulfate (Morphine Sulfate 2 Mg/Ml Carp) 2 mg IV Q30M PRN PRN Reason: Chest Pain Stop: 06/19/20 00:04 Nitroglycerin (Nitroglycerin Sl 0.4 Mg/Tab Tab) 0.4 mg SL UD PRN PRN Reason: Chest Pain Stop: 07/05/20 00:04 Ondansetron HCl (Ondansetron Inj 2 Mg/Ml 2 Ml Vial) 4 mg IV Q6H PRN PRN Reason: Nausea Stop: 07/05/20 00:04 Polyethylene Glycol (Polyethylene (Miralax) 17 Gm Pack) 17 gm PO DAILY PRN PRN Reason: Constipation Stop: 07/05/20 00:04 Tamsulosin HCl (Tamsulosin Hcl 0.4 Mg Cap) 0.4 mg PO BID NASH Stop: 07/05/20 08:59 Supervising Physician Co-Signing Physician Notes Attending addendum: I have physically seen this patient, have supervised the medical residents activities, and agree with the H&P unless as otherwise noted. Assessment and Plan: Generalized weakness- Has had physical limitations that have only partially been completed at rehab, due to her requests to leave [facility] early Elements of anhedonia are also likely contributing to generalized weakness and ambulatory dysfunction. Consult PT/OT Elevated troponin/hypertension/hyperlipidemia- The patient will be admitted to telemetry for serial cardiac enzymes, serial EKG's, cardiac rhythm monitoring and a 2-D echocardiogram with Dopplers. Continue aspirin, atenolol and atorvastatin Anhedonia/depression- Should consider psychiatry assessment while in hospital Remaining orders and notations as noted Resident Activity Tracking Resident Involvement: Resident Care Provided Care Provided: Adult Hospital Medicine
[2020-06-05] MEDS ORDERED: ONDANSETRON INJ 2 MG/ML 2 ML VIAL IV PRN (00:05)
[2020-06-05] MEDS ORDERED: MAGNESIUM HYDROXIDE SUSP 30 ML UDC PO PRN (00:05)
[2020-06-05] MEDS ORDERED: ACETAMINOPHEN 325 MG TAB PO PRN (00:05)
[2020-06-05] MEDS ORDERED: NITROGLYCERIN SL 0.4 MG/TAB TAB SL PRN (00:05)
[2020-06-05] MEDS ORDERED: LORazepam 0.5 MG TAB PO PRN (00:05)
[2020-06-05] MEDS ORDERED: ALUMINUM/MAGNESIUM SUSP 30 ML UDC PO PRN (00:05)
[2020-06-05] MEDS ORDERED: POLYETHYLENE (MIRALAX) 17 GM PACK PO PRN (00:05)
[2020-06-05] MEDS ORDERED: MoRPHine SULFATE 2 MG/ML CARP IV PRN (00:05)
[2020-06-05] MEDS: ATENOLOL 25 MG TABLET PO SCH (07:47)
[2020-06-05] MEDS: TAMSULOSIN HCL 0.4 MG CAP PO SCH ×2 (07:47→20:13)
[2020-06-05] MEDS: ASPIRIN 81 MG ECTAB PO SCH (07:47)
[2020-06-05 08:06] LABS: Appearance Urine Turbid (Clear); Bilirubin Urine Negative (Negative); Blood Urine 3+ (Negative); Color Urine Dark Yellow; Glucose Urine UA Negative (Negative); Ketones Urine Negative (Negative); Leukocyte Esterase Urine 3+ (Negative); Nitrite Urine Negative (Negative); Protein Urine 1+ (Negative); Specific Gravity Urine 1.023 (1.000-1.030); Urobilinogen Urine Negative (Negative); WBC Urine Automated >30 /hpf (0-5)
[2020-06-05 08:27] LABS: Bacteria Urine Automated 4+ (Negative); Cast Urine Automated 0 /lpf (0-5); Epithelial Cell Urine Auto 0-5 /lpf (0-5)
[2020-06-05 09:13] LABS: Basophils # (auto) 0.02 K/uL (0-0.2); Basophils % (auto) 0.6 %; Eosinophils # (auto) 0.09 K/uL (0-0.5); Eosinophils % (auto) 2.6 %; Hematocrit (blood only) 40.9 % (37-47); Hemoglobin 12.9 g/dL (12.0-16.0); Immature Granulocytes # (auto) 0.01 K/uL (0.00-0.02); Immature Granulocytes % (auto) 0.3 %; Lymphocytes # (auto) 0.57 K/uL (1.2-3.4); Lymphocytes % (auto) 16.8 %; Mean Corpuscular Hemoglobin 30.3 pg (25-34); Mean Corpuscular Hgb Conc 31.5 g/dL (32-36); Mean Platelet Volume 9.2 fL (7.4-10.4); Monocytes # (auto) 0.38 K/uL (0.11-0.59); Monocytes % (auto) 11.2 %; Neutrophils # (auto) 2.33 K/uL (1.4-6.5); Neutrophils % (auto) 68.5 %; Platelet Count 132 K/uL (130-400); RDW Coefficient of Variation 14.2 % (11.5-14.5); RDW Standard Deviation 49.5 fL (36.4-46.3); Red Blood Count 4.26 M/uL (4.2-5.4)
[2020-06-05] MEDS: SODIUM CHLORIDE 0.9% 1000ML 1,000 ML IV SCH ×2 (09:17→20:13)
[2020-06-05] MEDS: cefTRIAXone SODIUM 1,000 MG in DEXTROSE 5% 50 ML IV SCH (09:33)
[2020-06-05 09:45] LABS: BUN Creatinine Ratio 21.4 (10-20); Calcium 10.7 mg/dl (8.5-10.1); Creatinine Clr Calc Pharmacy 30.8 ml/min; Est GFR (African American) 44.9; Est GFR (Non-African American) 38.8; Magnesium 1.6 mg/dl (1.8-2.4); Potassium 3.9 mmol/L (3.5-5.1)
[2020-06-05 09:46] LABS: Phosphorus 1.8 mg/dl (2.5-4.9)
[2020-06-05 09:51] LABS: Albumin Level 2.5 gm/dl (3.4-5.0); Troponin I 0.047 ng/ml (0-0.045)
[2020-06-05] MEDS ORDERED: SODIUM PHOSPHATE 3 MMOL/1 ML INFUSION IV STA (10:28)
[2020-06-05] MEDS ORDERED: MAGNESIUM SULFATE / D5W 1 GM/100 ML BAG IV ONE (11:00)
[2020-06-05] MEDS ORDERED: SODIUM PHOSPHATE 15 MMOL in SODIUM CHLORIDE 0.9% 250 ML IV ONE (11:00)
[2020-06-05] MEDS ORDERED: SODIUM PHOSPHATE 21 MMOL in SODIUM CHLORIDE 0.9% 500 ML IV ONE (11:00)
--- NOTE | 2020-06-05 12:58 | Hospitalist Progress Note ---
Date of Service June 05, 2020 Assessment & Plan (1) Weakness: Patient presents with worsening generalized weakness. This could be related to acute UTI in the setting of hypercalcemia. CK is normal, TSH is normal, CBC is with very mild thrombocytopenia and very mild leukopenia. Covid-19 is negative -Treating with IV Rocephin as below -Added IV fluids with normal saline at 100 mils per hour for hypercalcemia with work-up as below -PT/OT consultations We will continue to reassess and see if needs to go back to rehab (2) Hypercalcemia: -incidentally noticed in March due to confusion episode and had a stroke work-up at that time which was negative to include CT angiogram head and neck and MRI of the brain as per her son However, she also recently had her first onset of a kidney stone for which she had a ureteral stent placed -With a history of migraine headaches but no increase in headaches, just with generalized weakness otherwise -Corrected serum calcium today is 11.9 intact PTH which was low at 9.3 PTH related protein-pending Phosphorus low, vitamin D was normal at 38, 1, 25-vitamin D level is pending Alkaline phosphatase only minimally elevated at 121 TSH normal at 0.6 Creatinine was mildly elevated on admission 1.4 and is now down to 1.24 SPEP and UPEP ordered, total protein low at 5.9, 1+ protein on urinalysis dipstick CT abdomen/pelvis without any bony lesions or lymphadenopathy noted Given that she has upper and mid back pain-check CT of the chest-this showed multiple pulmonary nodules but no bony lesions or lymphadenopathy -Start IV fluids with normal saline at 100 mL/h -Consider bisphosphonate -Follow chemistry with calcium in the morning -Results can be followed up on as an outpatient with PCP (3) UTI (urinary tract infection): UA markedly abnormal Urine culture pending Start Rocephin and follow urine culture Did have recent instrumentation for ureteral stent placement and removal (4) Elevated troponin: -troponin elevated on admission 0.059 and remained mildly elevated but trended slightly downward -no significant EKG changes, no chest pain Echocardiogram with preserved EF and no wall motion abnormalities No known coronary artery disease but does have coronary artery calcifications visualized on CT chest No further evaluation needed at this time -Continue aspirin, beta-lesly, statin (5) Hypomagnesemia: Replace with IV magnesium Follow magnesium level in the morning (6) Hypophosphatemia: Replace with IV phosphorus Follow phosphorus level in the morning (7) Hyperlipidemia: Continue statin (8) Nephrolithiasis: As noted above, with recent first kidney stone requiring ureteral stent just a couple of weeks ago Continue tamsulosin although this could likely be stopped? (9) Hypertension: Blood pressures are acceptable Continue atenolol (10) Renal insufficiency: As above, creatinine mildly elevated 1.4 upon admission now down to 1.2 Follow BMP Renally dose medications (11) Anhedonia: Feeling down lately, unclear if from depression versus hypercalcemia Follow (12) Thyroid nodule: With multinodular goiter on outside report, thyroid ultrasound repeated here and shows this None of the nodules meet criteria for biopsy TSH is normal (13) DVT prophylaxis: Add SQ Lovenox Disposition-continued stay PT/OT evaluations We will see if needs placement Admission and Anticipated Discharge Date Admission Date: June 04, 2020 Subjective Patient reports feeling generally weak but okay today. She did get up with PT with a walker. She reports some mid to upper back pain and feels like she just cannot sit up straight. She has a history of migraine headaches but they have not been worse than normal. Denies any lightheadedness, denies chest pains or shortness of breath. Denies joint or bony pains anywhere else. Denies abdominal pains. No fevers or chills. Her son brought a report of an outside thyroid ultrasound showed multinodular goiter that stated "neoplasm cannot be excluded" and he had concerns about it. Discussed the results of her testing here with her and her son. They report that she just had a kidney stone with a stent placed and removed a couple of weeks ago. This was the first kidney stone she is ever had. Telemetry with normal sinus rhythm with rates in 60s 80s, PVCs. Review of Systems Review of Systems: All systems reviewed & are unremarkable except as noted in HPI & below Physical Exam Constitutional: WD/WN, vitals as above Eyes: PERRL, conjunctivae normal, anicteric sclerae ENMT: external ear and nose normal, oropharynx normal Neck: trachea midline Thyroid: + thyroid nodule (Nodule palpated in the left lobe) Respiratory: normal respiratory effort Auscultation: + crackles (at bases); no rhonchi and no wheezes Cardiovascular: RRR, no murmur, no edema Chest (Breasts): Chest: normal inspection of chest Gastrointestinal (Abdomen): normal bowel sounds, soft, nontender, no hepatosplenomegaly Musculoskeletal: Extremities: extremities normal to inspection; no cyanosis and no clubbing Skin: no rashes, warm and dry Neurologic: moves all extremities and awake; no focal motor deficits Psychiatric: A+Ox3, euthymic affect Lymphatic: no lymphedema Results & Data Results & Data ([facility]) Vital Signs (Past 12 Hours) Vital Signs Temp Pulse Resp BP Pulse Ox 06/05/20 07:41 36.5 C 76 16 133/79 94 06/05/20 04:29 36.4 C L 78 16 129/74 98 Laboratory Results 06/05/20 06/05/20 06/05/20 Range/Units 11:19 11:19 08:59 WBC (4.8-10.8) K/uL RBC (4.2-5.4) M/uL Hgb (12.0-16.0) g/dL Hct (37-47) % MCV (80-100) fL MCH (25-34) pg MCHC (32-36) g/dL RDW Std Deviation (36.4-46.3) fL RDW Coeff of Makeda (11.5-14.5) % Plt Count (130-400) K/uL MPV (7.4-10.4) fL Immature Gran % (Auto) % Neut % (Auto) % Lymph % (Auto) % [place] % (Auto) % Eos % (Auto) % Baso % (Auto) % Neut # (Auto) (1.4-6.5) K/uL Lymph # (Auto) (1.2-3.4) K/uL [place] # (Auto) (0.11-0.59) K/uL Eos # (Auto) (0-0.5) K/uL Baso # (Auto) (0-0.2) K/uL Immature Gran # (Auto) (0.00-0.02) K/uL Sodium (136-145) mmol/L Potassium (3.5-5.1) mmol/L Chloride (98-107) mmol/L Carbon Dioxide (21-32) mmol/L Anion Gap (3-11) BUN (7-18) mg/dl Creatinine (0.6-1.2) mg/dl Est Cr Clr Drug Dosing ml/min Est GFR ( Amer) Est GFR (Non-Af Amer) BUN/Creatinine Ratio (10-20) Glucose (70-99) mg/dl Calcium (8.5-10.1) mg/dl Phosphorus (2.5-4.9) mg/dl Magnesium (1.8-2.4) mg/dl Troponin I (0-0.045) ng/ml Albumin (3.4-5.0) gm/dl 25-OH Vitamin D Total 38.4 (30-100) ng/ml Vit D 1,25-Dihyd Total Pending 1,25 Dihydroxy Vit D2 Pending 1,25 Dihydroxy Vit D3 Pending TSH 0.658 (0.300-4.500) uIu/ml PTH Intact (18.4-80.1) pg/ml PTH Related Protein Pending Urine Color Urine Appearance (Clear) Urine pH (4.5-7.5) Ur Specific [place] (1.000-1.030) Urine Protein (Negative) Urine Glucose (UA) (Negative) Urine Ketones (Negative) Urine Blood (Negative) Urine Nitrite (Negative) Urine Bilirubin (Negative) Urine Urobilinogen (Negative) Ur Leukocyte Esterase (Negative) Urine WBC (Auto) (0-5) /hpf Urine RBC (Auto) (0-4) /hpf U Hyaline Cast (Auto) (0-5) /lpf U Epithel Cells (Auto) (0-5) /lpf Urine Bacteria (Auto) (Negative) Urine Crystals 06/05/20 06/05/20 06/05/20 Range/Units 08:59 08:59 08:59 WBC (4.8-10.8) K/uL RBC (4.2-5.4) M/uL Hgb (12.0-16.0) g/dL Hct (37-47) % MCV (80-100) fL MCH (25-34) pg MCHC (32-36) g/dL RDW Std Deviation (36.4-46.3) fL RDW Coeff of Makeda (11.5-14.5) % Plt Count (130-400) K/uL MPV (7.4-10.4) fL Immature Gran % (Auto) % Neut % (Auto) % Lymph % (Auto) % [place] % (Auto) % Eos % (Auto) % Baso % (Auto) % Neut # (Auto) (1.4-6.5) K/uL Lymph # (Auto) (1.2-3.4) K/uL [place] # (Auto) (0.11-0.59) K/uL Eos # (Auto) (0-0.5) K/uL Baso # (Auto) (0-0.2) K/uL Immature Gran # (Auto) (0.00-0.02) K/uL Sodium 141 (136-145) mmol/L Potassium 3.9 (3.5-5.1) mmol/L Chloride 112 H (98-107) mmol/L Carbon Dioxide 25 (21-32) mmol/L Anion Gap 4.0 (3-11) BUN 27 H (7-18) mg/dl Creatinine 1.24 H (0.6-1.2) mg/dl Est Cr Clr Drug Dosing 30.8 ml/min Est GFR ( Amer) 44.9 Est GFR (Non-Af Amer) 38.8 BUN/Creatinine Ratio 21.4 H (10-20) Glucose 102 H (70-99) mg/dl Calcium 10.7 H (8.5-10.1) mg/dl Phosphorus 1.8 L (2.5-4.9) mg/dl Magnesium 1.6 L (1.8-2.4) mg/dl Troponin I 0.047 H* (0-0.045) ng/ml Albumin 2.5 L (3.4-5.0) gm/dl 25-OH Vitamin D Total (30-100) ng/ml Vit D 1,25-Dihyd Total 1,25 Dihydroxy Vit D2 1,25 Dihydroxy Vit D3 TSH (0.300-4.500) uIu/ml PTH Intact 9.3 L (18.4-80.1) pg/ml PTH Related Protein Urine Color Urine Appearance (Clear) Urine pH (4.5-7.5) Ur Specific [place] (1.000-1.030) Urine Protein (Negative) Urine Glucose (UA) (Negative) Urine Ketones (Negative) Urine Blood (Negative) Urine Nitrite (Negative) Urine Bilirubin (Negative) Urine Urobilinogen (Negative) Ur Leukocyte Esterase (Negative) Urine WBC (Auto) (0-5) /hpf Urine RBC (Auto) (0-4) /hpf U Hyaline Cast (Auto) (0-5) /lpf U Epithel Cells (Auto) (0-5) /lpf Urine Bacteria (Auto) (Negative) Urine Crystals 06/05/20 06/05/20 06/05/20 Range/Units 08:59 07:58 00:26 WBC 3.40 L (4.8-10.8) K/uL RBC 4.26 (4.2-5.4) M/uL Hgb 12.9 (12.0-16.0) g/dL Hct 40.9 (37-47) % MCV 96.0 (80-100) fL MCH 30.3 (25-34) pg MCHC 31.5 L (32-36) g/dL RDW Std Deviation 49.5 H (36.4-46.3) fL RDW Coeff of Makeda 14.2 (11.5-14.5) % Plt Count 132 (130-400) K/uL MPV 9.2 (7.4-10.4) fL Immature Gran % (Auto) 0.3 % Neut % (Auto) 68.5 % Lymph % (Auto) 16.8 % [place] % (Auto) 11.2 % Eos % (Auto) 2.6 % Baso % (Auto) 0.6 % Neut # (Auto) 2.33 (1.4-6.5) K/uL Lymph # (Auto) 0.57 L (1.2-3.4) K/uL [place] # (Auto) 0.38 (0.11-0.59) K/uL Eos # (Auto) 0.09 (0-0.5) K/uL Baso # (Auto) 0.02 (0-0.2) K/uL Immature Gran # (Auto) 0.01 (0.00-0.02) K/uL Sodium (136-145) mmol/L Potassium (3.5-5.1) mmol/L Chloride (98-107) mmol/L Carbon Dioxide (21-32) mmol/L Anion Gap (3-11) BUN (7-18) mg/dl Creatinine (0.6-1.2) mg/dl Est Cr Clr Drug Dosing ml/min Est GFR ( Amer) Est GFR (Non-Af Amer) BUN/Creatinine Ratio (10-20) Glucose (70-99) mg/dl Calcium (8.5-10.1) mg/dl Phosphorus (2.5-4.9) mg/dl Magnesium (1.8-2.4) mg/dl Troponin I 0.052 H* (0-0.045) ng/ml Albumin (3.4-5.0) gm/dl 25-OH Vitamin D Total (30-100) ng/ml Vit D 1,25-Dihyd Total 1,25 Dihydroxy Vit D2 1,25 Dihydroxy Vit D3 TSH (0.300-4.500) uIu/ml PTH Intact (18.4-80.1) pg/ml PTH Related Protein Urine Color Dark Yellow Urine Appearance Turbid A (Clear) Urine pH 5.0 (4.5-7.5) Ur Specific [place] 1.023 (1.000-1.030) Urine Protein 1+ H (Negative) Urine Glucose (UA) Negative (Negative) Urine Ketones Negative (Negative) Urine Blood 3+ H (Negative) Urine Nitrite Negative (Negative) Urine Bilirubin Negative (Negative) Urine Urobilinogen Negative (Negative) Ur Leukocyte Esterase 3+ H (Negative) Urine WBC (Auto) >30 H (0-5) /hpf Urine RBC (Auto) 5-10 H (0-4) /hpf U Hyaline Cast (Auto) 0 (0-5) /lpf U Epithel Cells (Auto) 0-5 (0-5) /lpf Urine Bacteria (Auto) 4+ H (Negative) Urine Crystals Not Reportable Diagnostic Findings CT chest: 1. 13 mm groundglass right upper lobe pulmonary nodule 2. Scattered subcentimeter pulmonary nodules and micronodules the largest of which measures 5 mm 3. Multinodular thyroid gland 4. No evidence of pathologic adenopathy 5. 6-[address] follow-up is recommended per Fleischner criteria THYROID ULTRASOUND CLINICAL HISTORY: thyroid nodules,hypercalcemia COMPARISON STUDY: None. TECHNIQUE: Sonography of the thyroid gland was performed. FINDINGS: Right thyroid lobe measures 4.9 x 2 x 2.7 cm and the left lobe measures 4.4 x 2.3 x 3.1 cm. Multiple thyroid nodules are noted. These include a 2 cm predominantly cystic right mid pole nodule. This has benign imaging characteristics. There is a 1 cm peripherally calcified right lower pole nodule. This does not meet criteria for biopsy. Note is made of a 2.4 x 1.2 x 1.7 cm hypoechoic nodule within the posterior aspect of the upper pole of the right thyroid lobe. This is wider than tall. Several left lobe nodules are noted, including a 2.7 cm predominantly cystic nodule which is likely benign. A few subcentimeter left lobe nodules are noted. There is a 1.5 cm isthmus nodule. IMPRESSION: Findings consistent with a multinodular thyroid gland as described above. PG Care Time/CCT Total # of Minutes Spent Total Time Spent with Patient: Total time spent is greater than 50% in coordination of care (as documented) at patient's floor/unit and/or counseling patient: Coding Level of Care Code 01401 Subseq Hosp Care Lvl 3 Diagnoses Weakness R53.1 Hypercalcemia E83.52 UTI (urinary tract infection) N39.0 Elevated troponin R77.8 Hypomagnesemia E83.42 Hypophosphatemia E83.39 Hyperlipidemia E78.5 Nephrolithiasis N20.0 Hypertension I10 Renal insufficiency N28.9 Anhedonia R45.84 Thyroid nodule E04.1 DVT prophylaxis Z29.9
--- NOTE | 2020-06-05 14:01 | XCELERA ---
[id number]
[2020-06-05] MEDS ORDERED: OPTIRAY 320 100ml IV ONE (16:16)
--- NOTE | 2020-06-05 16:35 | Electrocardiogram Report ---
Test Reason : Blood Pressure : / mmHG Vent. Rate : 075 BPM Atrial Rate : 075 BPM P-R Int : 170 ms QRS Dur : 078 ms QT Int : 358 ms P-R-T Axes : -03 -02 023 degrees QTc Int : 399 ms Normal sinus rhythm possible Inferior infarct , age undetermined Poor R wave progression, consider anterior VA vs. lead placement vs. LVH Abnormal ECG No previous ECGs available Confirmed by Marco A Lundberg ([id number]) on 06/05/2020 4:34:43 PM Referred By: REFERRED SELF Confirmed By:Jorge Lundberg
--- NOTE | 2020-06-05 16:39 | CT Scan Report ---
CT OF THE CHEST WITH IV CONTRAST CLINICAL HISTORY: hypercalcemia,thyroid nodules,r/o malignancy chest COMPARISON STUDY: Chest x-ray dated 06/04/2020 TECHNIQUE: Following the IV administration of 94 mL of Optiray-320, CT of the thorax was performed f rom the thoracic inlet to the lung bases. Images are reviewed in the axial, sagittal, and coronal austin carie. IV contrast was administered without complication. A dose lowering technique was utilized adher ing to the principles of ALARA. CT DOSE: 233.47 mGycm FINDINGS: Thyroid: There is a multinodular thyroid gland with nodules measuring up to 18 mm in diameter. Thoracic aorta: There is ectasia of descending thoracic aorta which measures 38 mm. Pulmonary vasculature: The pulmonary trunk is normal in caliber. There are no central filling defects identified to suggest pulmonary embolus. Note that this examination was not protocoled for the evalu ation of pulmonary emboli. HEART: There are coronary artery calcifications. There is a trace pericardial effusion Lungs and pleural spaces: There are trace pleural effusions. There is respiratory motion artifact. Th ere is a 13 mm groundglass right upper lobe pulmonary nodule. There are multiple scattered subcentime ter pulmonary nodules and micronodules. The largest is located within the right lung apex measuring 5 mm. Mediastinum: There is no evidence of pathologic mediastinal lymphadenopathy Joy: There is no evidence of pathologic hilar adenopathy Axilla: There is no evidence of pathologic axillary lymphadenopathy Upper abdomen: Partially visualized upper abdominal viscera is within normal limits. Skeletal structures: There are no lytic or blastic osseous lesions. IMPRESSION: 1. 13 mm groundglass right upper lobe pulmonary nodule 2. Scattered subcentimeter pulmonary nodules and micronodules the largest of which measures 5 mm 3. Multinodular thyroid gland 4. No evidence of pathologic adenopathy 5. 6-[address] follow-up is recommended per Fleischner criteria Please refer to below summary of Fleischner criteria recommendations for follow-up of incidental CT n odules (David Jacome, Guidelines for management of small pulmonary nodules detected on CT scans: A sta tembebo from the Fleischner Society, Radiology 237: [phone].) SOLID NODULES Solitary nodule size: <6 mm * low risk patients: no follow-up needed * high risk patients: optional CT at 12 months Solitary nodule size: 6-8 mm * low risk patients: follow-up at 6-12 months, then consider further follow-up at 18-24 months * high risk patients: initial follow-up CT at 6-12 months and then at 18-24 months if no change Solitary nodule size: >8 mm * either low or high risk patients - consider follow-up CT at 3 months, and/or CT-PET, and/or biopsy Multiple nodules size: <6 mm * low risk patients: no routine follow-up * high risk patients: optional CT at 12 months Multiple nodules size: 6-8 mm * low risk patients: follow-up at 3-6 months, then consider further follow-up at 18-24 months * high risk patients: follow-up at 3-6 months, then at 18-24 months if no change Multiple nodules size: >8 mm * low risk patients: follow-up at 3-6 months, then consider further follow-up at 18-24 months * high risk patients: follow-up at 3-6 months, then at 18-24 months if no change Note: newly detected indeterminate nodule in persons 35 years of age or older. * low risk patients: minimal or absent history of smoking and/or other known risk factors * high risk patients: history of smoking or of other known risk factors (e.g. first degree relative with lung cancer, or exposure to asbestos, radon, uranium) * if a nodule up to 8 mm is partly solid or is ground glass further follow-up is required after 24 m onths to exclude possible slow growing adenocarcinoma (DARLENE) SUBSOLID NODULES Solitary pure ground-glass nodule * nodule size <6 mm - no CT follow-up required * nodule size >=6 mm - follow-up CT at 6-12 months, then every 2 years until 5 years Solitary part-solid nodule * nodule size <6 mm - no CT follow-up required * nodule size >=6 mm - follow-up CT at 3-6 months. If unchanged, and solid component remains <6 mm, then annual follow-up for 5 years Multiple subsolid nodules * nodule size <6 mm - follow-up CT at 3-6 months, consider further follow-up at 2 and 4 years if sta ble * nodule size >=6 mm - follow-up CT at 3-6 months, subsequent management based on the most suspiciou s nodule(s) ACT 112: Positive. There are findings on this exam that require communication between the performing entity and the patient following Patient Test Result Information Act ([place] Act 112) guidelines. Electronically signed by: Mohsen Kaur M.D. 06/05/2020 4:38 PM
--- NOTE | 2020-06-05 17:18 | Ultrasound Report ---
THYROID ULTRASOUND CLINICAL HISTORY: thyroid nodules,hypercalcemia COMPARISON STUDY: None. TECHNIQUE: Sonography of the thyroid gland was performed. FINDINGS: Right thyroid lobe measures 4.9 x 2 x 2.7 cm and the left lobe measures 4.4 x 2.3 x 3.1 cm. Multiple thyroid nodules are noted. These include a 2 cm predominantly cystic right mid pole nodule. This has benign imaging characteristics. There is a 1 cm peripherally calcified right lower pole nod ule. This does not meet criteria for biopsy. Note is made of a 2.4 x 1.2 x 1.7 cm hypoechoic nodule w ithin the posterior aspect of the upper pole of the right thyroid lobe. This is wider than tall. Several left lobe nodules are noted, including a 2.7 cm predominantly cystic nodule which is likely b enign. A few subcentimeter left lobe nodules are noted. There is a 1.5 cm isthmus nodule. IMPRESSION: Findings consistent with a multinodular thyroid gland as described above. ACT 112: Negative or not required by law. Electronically signed by: Solitario Jerome M.D. 06/05/2020 5:17 PM
[2020-06-05] MEDS ORDERED: ATORVASTATIN 20 MG TAB PO SCH (21:00)
[2020-06-05] MEDS ORDERED: ENOXAPARIN INJ 30 MG/0.3 ML SYR SQ SCH (21:30)
--- NOTE | 2020-06-06 05:41 | Billing Data ---
Date of Service June 06, 2020 Coding Level of Care Code 45383 Initial Inpt Care Lvl 2
[2020-06-06 07:59] LABS: Basophils # (auto) 0.01 K/uL (0-0.2); Basophils % (auto) 0.3 %; Eosinophils # (auto) 0.07 K/uL (0-0.5); Eosinophils % (auto) 2.4 %; Hematocrit (blood only) 34.9 % (37-47); Hemoglobin 11.2 g/dL (12.0-16.0); Immature Granulocytes # (auto) 0.01 K/uL (0.00-0.02); Immature Granulocytes % (auto) 0.3 %; Lymphocytes # (auto) 0.49 K/uL (1.2-3.4); Mean Corpuscular Hemoglobin 30.4 pg (25-34); Mean Corpuscular Hgb Conc 32.1 g/dL (32-36); Mean Corpuscular Volume 94.6 fL (80-100); Mean Platelet Volume 9.6 fL (7.4-10.4); Monocytes # (auto) 0.44 K/uL (0.11-0.59); Monocytes % (auto) 15.3 %; Neutrophils # (auto) 1.86 K/uL (1.4-6.5); Neutrophils % (auto) 64.7 %; Platelet Count 130 K/uL (130-400); RDW Coefficient of Variation 14.3 % (11.5-14.5); RDW Standard Deviation 49.3 fL (36.4-46.3); Red Blood Count 3.69 M/uL (4.2-5.4); White Blood Count 2.88 K/uL (4.8-10.8)
[2020-06-06 08:24] LABS: Albumin Level 2.2 gm/dl (3.4-5.0); BUN Creatinine Ratio 22.2 (10-20); Calcium 9.5 mg/dl (8.5-10.1); Creatinine Clr Calc Pharmacy 35.2 ml/min; Est GFR (African American) 53.7; Est GFR (Non-African American) 46.3; Magnesium 1.7 mg/dl (1.8-2.4); Potassium 3.8 mmol/L (3.5-5.1)
[2020-06-06 08:29] LABS: Albumin Globulin Ratio 0.9 (0.9-2); Bilirubin,Total 0.5 mg/dl (0.2-1); Globulin 2.5 gm/dl (2.5-4.0); Phosphorus 2.5 mg/dl (2.5-4.9); Total Protein 4.7 gm/dl (6.4-8.2)
[2020-06-06] MEDS: SODIUM CHLORIDE 0.9% 1000ML 1,000 ML IV SCH (08:44)
[2020-06-06] MEDS: cefTRIAXone SODIUM 1,000 MG in DEXTROSE 5% 50 ML IV SCH (08:46)
[2020-06-06] MEDS: ASPIRIN 81 MG ECTAB PO SCH (08:46)
[2020-06-06] MEDS: ATENOLOL 25 MG TABLET PO SCH (08:46)
[2020-06-06] MEDS: TAMSULOSIN HCL 0.4 MG CAP PO SCH (08:46)
[2020-06-06] MEDS ORDERED: AMOXICILLIN 500 MG CAP PO SCH (09:45)
[2020-06-06] MEDS ORDERED: MAGNESIUM SULFATE / D5W 1 GM/100 ML BAG IV ONE (09:45)
--- NOTE | 2020-06-06 11:59 | Discharge Summary ---
Date of Service June 06, 2020 Admission HPI Per Admitting Provider Naheed Lewis is a 89y/o F presenting to the hospital for generalized weakness, decreased appetite, and decreased interest in normal daily activities over the last several weeks. Over the last several months, patient has become increasingly frustrated with the pandemic and not being able to routinely see her family like she used too. Then in March, patient had an episode of confusion while on the phone with her family and they became concerned that she had a stroke and took her to the hospital in [place], there they discovered that she had a little bit of a higher calcium level in her blood and gave her more fluids. Following several days there, she was discharged to [facility] to work on improving her strength and for a time she was happy with doing this as her Grand-daughter works there and she was able to see her intermittently, but then over time her still being away from her family caused her to want to leave, and so she requested to leave even though she admits that she "had improved but wasn't myself", feels like the time away from her family which typically gives her such yadiel in the day really took a lot out of her, and she dislikes the fact that she is more reliant on her family than she ever was before this last year. Endorses changes to her sleep pattern over the last several weeks, decreased interest in normal activities, decreased appetite, feelings of guilt with being so reliant on her family. Denies SI/HI. Principal Diagnosis Generalized weakness, UTI, Hypercalcemia, Pulmonary nodules Discharge Exam Constitutional WD/WN, vitals as above Eyes + anicteric sclerae Neck trachea midline Thyroid: + thyroid nodule (Nodule palpated in the left lobe) Respiratory normal respiratory effort, lungs clear to auscultation Cardiovascular RRR, no murmur, no edema Chest (Breasts) Chest: normal inspection of chest Gastrointestinal (Abdomen) normal bowel sounds, soft, nontender, no hepatosplenomegaly Musculoskeletal Extremities: extremities normal to inspection; no cyanosis and no clubbing Skin no rashes, warm and dry Neurologic moves all extremities and awake; no focal motor deficits Psychiatric A+Ox3, euthymic affect Lymphatic no lymphedema Discharge Data Allergies Allergy/AdvReac Type Severity Reaction Status Date / Time ketorolac [From Toradol] AdvReac Severe Confusion Verified 06/04/20 19:32 Consultations 06/04/20 20:37 ED Decision to Admit Stat 06/06/20 07:43 Consult Pulmonology Routine Ordered Studies 06/04/20 18:35 CT abd pelvis wo con Stat 06/05/20 12:56 CT chest diagnostic w con Routine 06/05/20 16:30 US thyroid Routine CXR ECHO Hospital Course (1) Weakness: Patient presents with worsening generalized weakness. This could be related to acute UTI in the setting of hypercalcemia. CK is normal, TSH is normal, CBC is with very mild thrombocytopenia and very mild leukopenia. Covid-19 is negative -Treating with IV Rocephin as below Ur cx growing Strep species--> dc Rocephin and change to Amoxicillin 500mg po bid x 7 days -f/u on final Ur cx result after discharge -treated with IV fluids with normal saline at 100 mils per hour for hypercalcemia with work-up as below -PT/OT consultations appreciated--> stable for home with home health (2) Hypercalcemia: -incidentally noticed in March due to confusion episode and had a stroke work-up at that time which was negative to include CT angiogram head and neck and MRI of the brain as per her son However, she also recently had her first onset of a kidney stone for which she had a ureteral stent placed -With a history of migraine headaches but no increase in headaches, just with generalized weakness otherwise -Corrected serum calcium here is 11.9 and then down to 10.9 on day of discharge intact PTH which was low at 9.3 PTH related protein-pending at time of discharge Phosphorus low, vitamin D was normal at 38, 1, 25-vitamin D level is pending Alkaline phosphatase only minimally elevated at 121 TSH normal at 0.6 Creatinine was mildly elevated on admission 1.4 and is now down to 1.07 SPEP and UPEP collected and pending at time of discharge, total protein low at 5.9, 1+ protein on urinalysis dipstick GUILLE level pending at time of discharge CT abdomen/pelvis without any bony lesions or lymphadenopathy noted Given that she has upper and mid back pain-checked CT of the chest-this showed multiple pulmonary nodules but no bony lesions or lymphadenopathy--> question if has Sarcoidosis -treated with IV fluids with normal saline at 100 mL/h -no bisphosphonate tx needed as not severe -Follow chemistry with calcium as an outpt with PCP -Results of all pending tests can be followed up on as an outpatient with PCP -consulted PULM to see if needs bronchoscopy as an outpt for further workup-will f/u as outpt -encouraged her to drink plenty of fluids at home to keep Ca++ levels down -avoid all calcium and vit D containing supplements (3) UTI (urinary tract infection): UA markedly abnormal Urine culture with Strep species Started Rocephin but with Strep species, could be Enterococcus as well--> convert to amoxicillin x 7 day course f/u Ur cx after discharge Did have recent instrumentation for ureteral stent placement and removal (4) Elevated troponin: -troponin elevated on admission 0.059 and remained mildly elevated but trended slightly downward -no significant EKG changes, no chest pain Echocardiogram with preserved EF and no wall motion abnormalities No known coronary artery disease but does have coronary artery calcifications visualized on CT chest No further evaluation needed at this time -Continue aspirin, beta-lesly, statin (5) Pulmonary nodule: as above, multiple nodules on CT chest PULM consult and f/u as outpt possible sarcoidosis at minimum, needs repeat CT CHest 6 months (6) Thyroid nodule: With multinodular goiter on outside report, thyroid ultrasound repeated here and shows this None of the nodules meet criteria for biopsy TSH is normal f/u as planned with ENT as outpt (7) Nephrolithiasis: As noted above, with recent first kidney stone requiring ureteral stent just a couple of weeks ago Continue tamsulosin although this could likely be stopped? (8) Hypertension: Blood pressures are acceptable Continue atenolol (9) Hyperlipidemia: Continue statin (10) Hypophosphatemia: Replaced with IV phosphorus (11) Hypomagnesemia: Replaced with IV magnesium (12) Renal insufficiency: As above, creatinine mildly elevated 1.4 upon admission now down to 1.0 after IVFs Follow BMP as outpt Renally dose medications push po fluids at home (13) Anhedonia: Feeling down lately, unclear if from depression versus hypercalcemia Follow as outpt (14) DVT prophylaxis: SQ Lovenox Disposition-dc to home with home health Discussed all her care at length with sonKike Total Time Total Time Spent Total Time Spent (In Minutes): 45 min Total Time Includes: Examination of the Patient, Discharge Planning and Medication Reconciliation Discharge Plan Discharge Items Patient Disposition: Home - Home Health Services Reason For Visit: WEAKNESS, ELEVATED TROPONIN Discharge Diagnosis: Generalized weakness, UTI, Hypercalcemia, Pulmonary nodules Condition on Discharge: Good Activity: As commented below Lifting: Gradually increase as tolerated Bathing: No limitations Exercise/Sports: Gradually increase as tolerated Exercise Comment: yndia PT/OT Non-emergency contact: Primary Care Provider and Project Planner Call non-emergency contact if: you have any medication questions and your symptoms worsen Follow-up/Referrals: Kajal Pandey MD [Physician] - (Follow up within 2 weeks) Edward Abernathy [Primary Care Provider] - (Please call your PCP and scheduled an appt, with them within 1-2 weeks. ) Diet: Regular Addtl Attending Provider Instructions: You were admitted with weakness which is likely related to your urinary tract infection as well as your elevated calcium levels. You were treated with IV fluids and antibiotics. Your calcium level is down almost to normal. Please continue to drink plenty of fluids to keep your calcium levels down. There are multiple lab studies that are still pending at the time of discharge to determine the cause of your high calcium levels. Your PCP can follow up on all of these results and determine the next steps in your treatment. DO NOT TAKE any vitamin D or calcium-containing pills/supplements in the meantime. Your CT of the chest showed multiple small nodules in the lungs. You will need to follow up with Pulmonology regarding this as an outpatient. One of the possibilities that would explain your high calcium levels and these lung nodules would be a condition called sarcoidosis. The Project Planner will help determine if this is your diagnosis. Please finish out the course of amoxicillin (an antibiotic) for your UTI for 6 more days. The final urine culture result was pending at the time of discharge and can be followed up on by your PCP. If you develop fevers, back or abdominal pain, or blood in your urine, please let your doctor know right away. You also had a repeat thyroid ultrasound which showed nodules-these are most likely not cancerous, but you should keep your already scheduled appointment with the ENT Surgeon next month. Pending Studies at Discharge: Yes Studies:: Urine culture Stand-Alone Forms: My [facility] Medications and DC Order Prescriptions: New amoxicillin 500 mg Capsule 500 mg PO BID 6 Days Qty: 12 RF: 0 Continued atorvastatin 10 mg tablet 20 mg PO HS RF: 0 atenolol 25 mg tablet 12.5 mg PO QAM RF: 0 aspirin 81 mg tablet,delayed release (DR/EC) 81 mg PO DAILY RF: 0 lorazepam 0.5 mg tablet 0.5 mg PO BID PRN (Reason: Anxiety) RF: 0 tamsulosin 0.4 mg capsule 0.4 mg PO BID RF: 0 Discharge Orders: Discharge Order (Routine); Ordered 06/06/20 Ordered By: Rebeka Le Admission Data Admit Date/Time: 06/04/20 22:58 Attending Provider: Rebeka Le Admit Provider: Juan Underwood Primary Care Provider: Edward Abernathy Other Providers: Reji Connors ; Kajal Pandey Coding Level of Care Code D/C Day Management >30 mins Diagnoses Weakness R53.1 Hypercalcemia E83.52 UTI (urinary tract infection) N39.0 Elevated troponin R77.8 Pulmonary nodule R91.1 Thyroid nodule E04.1 Nephrolithiasis N20.0 Hypertension I10 Hyperlipidemia E78.5 Hypophosphatemia E83.39 Hypomagnesemia E83.42 Renal insufficiency N28.9 Anhedonia R45.84 DVT prophylaxis Z29.9
--- NOTE | 2020-06-06 13:46 | Pulmonary Consultation ---
Date of Consultation June 06, 2020 Assessment & Plan (1) Multiple pulmonary nodules: 06/05/2020 personally reviewed: 12.59 mm right upper lobe groundglass nodule and a small solid nodule anteriorly 5 mm, no mediastinal adenopathy --Multiple pulmonary nodules Largest being right upper lobe 13 mm Patient is a lifetime non-smoker Risk of malignancy is low The next best step would be to repeat a CAT scan in 3 months without contrast. 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 Management for hypercalcemia management as per primary team --History of colon cancer Status post colostomy Diagnosed 2000 s/p chemotherapy. Plan: Outpatient follow-up with pulmonary after CT chest 3 months Labs have already been ordered by the primary team This is a second episode that the patient was admitted for hypercalcemia. Can consider biphosphonate if the calcium is still persistently high. Pulmonary we will follow peripherally. Call with any questions. Case was discussed with Dr Le Please note the above document was generated using voice recognition software. It may contain grammatical, syntax or spelling errors.Any formal questions or concerns about the content, text or information contained within the body of this dictation should be directly addressed to the provider for clarification. (2) Hypercalcemia: History of Present Illness Attending Physician: Rebeka Le MD History of Present Illness 89-year-old female with past medical history of colon cancer s/p colostomy and chemotherapy in 2000 as well as 2003, kidney stones presented to the hospital with complaints of generalized weakness decreased appetite. Patient had a CT chest done which showed groundglass nodules in the spine pulmonary were consulted. At the time of examination patient denies any chest pain, no shortness of breath. No cough. No blurry vision. She does say that she was urinating more than usual. No dysuria, no diarrhea. Denies any headache. Patient denies any personal or family history of any autoimmune disease including sarcoid, rheumatoid, lupus, SLE. Patient denies any history of any rashes. Social history: Non-smoker, smoked a few cigarettes here and there during her teenage years, no alcohol use, denies any illicit drug use used to work in factory. Allergies Allergy/AdvReac Type Severity Reaction Status Date / Time ketorolac [From Toradol] AdvReac Severe Confusion Verified 06/04/20 19:32 Home Medications Medication Instructions Recorded Confirmed Type aspirin 81 mg PO DAILY 06/04/20 06/04/20 History atenolol 12.5 mg PO QAM 06/04/20 06/04/20 History atorvastatin 20 mg PO HS 06/04/20 06/04/20 History lorazepam 0.5 mg PO BID PRN 06/04/20 06/04/20 History tamsulosin 0.4 mg PO BID 06/04/20 06/04/20 History amoxicillin 500 mg PO BID 6 Days #12 cap 06/06/20 Rx Patient History Medical History (Updated 06/06/20 @ 13:37 by Kajal Pandey MD) Hypercalcemia Hyperlipidemia Hypertension Nephrolithiasis Pulmonary nodule Thyroid nodule Social History Smoking Status: Former smoker Hx Alcohol Use: No Hx Substance Use: No Preferred Language: Wallisian Communication Ability: Effective Beliefs That Will Affect Care: None marital status: / Current Living Situation: Family Current Living Situation Comment: lives in house with 12 steps at entrance, son lives with patient How many Children do You have: 6 Other Information That Helps Us Care for You: No Feels Safe at Home: Yes Safety Concerns: Feels Safe At This Time Assistive Devices: Glasses and Walker Review of Systems Review of Systems: All systems reviewed & are unremarkable except as noted in HPI & below Physical Exam Physical Exam: Constitutional: No acute distress HEENT: EOMI, PERRLA Respiratory system: Good air entry bilaterally, no wheeze, no rhonchi, no crackles CVS: S1-S2 positive, no murmurs or gallops Abdomen: Soft, nontender, nondistended, positive bowel sounds x4, positive colostomy Extremities: +2 pulses bilaterally radialis/ dorsalis pedis, no cyanosis, +1 pitting edema bilateral lower extremity Neuro: Awake alert oriented x3 Psych: Normal mood and affect G/U: No Kay Skin: no rashes, warm and dry Lymphatic: no cervical or axillary lymphadenopathy Results & Data Results & Data ([facility]) Vital Signs (Past 12 Hours) Vital Signs Temp Pulse Resp BP BP Pulse Ox 06/06/20 11:50 36.6 C 87 16 108/71 96 06/06/20 07:38 36.6 C 80 16 128/79 93 06/06/20 04:42 36.5 C 89 18 123/71 96 06/06/20 07:39 06/06/20 07:39 PG Care Time/CCT Total # of Minutes Spent Total Time Spent with Patient: Total time spent is greater than 50% in coordination of care (as documented) at patient's floor/unit and/or counseling patient: Coding Level of Care Code 33090 Initial Inpt Care Lvl 3 Diagnoses Multiple pulmonary nodules R91.8 Hypercalcemia E83.52
[2020-06-10 10:21] LABS: Albumin 2.3 g/dL (3.8-4.8); Alpha 1 Globulin 0.3 g/dL (0.2-0.3); Alpha 2 Globulin 0.6 g/dL (0.5-0.9); Angiotensin Converting Enzyme 84 U/L (9-67); Beta-1-Globulin 0.2 g/dL (0.4-0.6); Beta-2-Globulin 0.3 g/dL (0.2-0.5); Free Kappa 154.4 mg/L (3.3-19.4); Free Kappa/Lambda Ratio 4.03 (0.26-1.65); Free Lambda 38.3 mg/L (5.7-26.3); Gamma Globulin 0.9 g/dL (0.8-1.7); Monoclonal Protein Band 1 0.3 g/dL (NONE DETECTED); Monoclonal Protein Band 2 DNR g/dL (NONE DETECTED); Monoclonal Protein Band 3 DNR g/dL (NONE DETECTED); Total Protein 4.6 g/dL (6.1-8.1)
[2020-06-10 17:31] LABS: PTH Related Protein 26 pg/mL (14-27); Vitamin D 1,25 97 pg/mL (18-72); Vitamin D3,1,25 97 pg/mL
== END 2020-06-06 17:48 | disposition home health service (06) | DRG 690 ==
LOC: ED 14:44 → 2W 22:58 → SUATTDRO 22:58 → 2W 23:38